=== PATIENT | male | born 1950 | race Caucasian/White ===

== ENCOUNTER 2016-08-20 12:15 | Day surgery (SDC) | payer OTHER ==
[2016-08-18 11:34] LABS: ASPARTATE AMINO TRANSFERASE 20 U/L (15-37); BLOOD UREA NITROGEN 21 mg/dL (7-18)
[~2016-08-20] VITALS: Ht 177.8 cm; Wt 88.0 kg
[~2016-08-20 12:15] MED LIST: ASPI-496 PO; ATOR40TA PO; LOSA25TA5 PO; MULT-412 PO; OMEP20TA62 PO
[2016-08-20 12:43] VITALS: BP 134/82
[2016-08-20] MEDS ORDERED: LACTATED RINGERS 1,000 ML IV SCH (12:49)
[2016-08-20] MEDS ORDERED: OMEGA PO (12:50)
[2016-08-20] MEDS ORDERED: INDOCYANINE GREEN 25 MG VIAL ONE (13:04)
[2016-08-20] MEDS ORDERED: EPINEPHRINE SYRINGE 0.1 MG/ML, 10ML ONE (13:04)
[2016-08-20] MEDS ORDERED: MIDAZOLAM 1 MG/ML, 2ML ONE (13:25)
[2016-08-20] MEDS ORDERED: PROPOFOL 10 MG/ML, 50ML ONE (13:28)
[2016-08-20] MEDS ORDERED: ONDANSETRON 2MG/ML, 2ML ONE (13:28)
[2016-08-20] MEDS ORDERED: DEXAMETHASONE 4 MG/ML, 1ML ONE (13:28)
[2016-08-20] MEDS ORDERED: KETOROLAC 30 MG/1 ML ONE (13:28)
[2016-08-20] MEDS ORDERED: ALBUTEROL SULFATE 2.5 MG/3 ML NPPB PRN (14:00)
[2016-08-20] MEDS ORDERED: PROMETHAZINE 25 MG/ML, 1ML IV PRN (14:00)
[2016-08-20] MEDS ORDERED: MEPERIDINE/PF 25MG/0.5ML IVPush PRN (14:00)
[2016-08-20] MEDS ORDERED: MIDAZOLAM 1 MG/ML, 2ML IV PRN (14:00)
[2016-08-20] MEDS ORDERED: HYDROmorphone 1 MG/ML, 1ML IV PRN (14:00)
[2016-08-20] MEDS ORDERED: hydrALAzine 20 MG/ML, 1ML IV PRN (14:00)
[2016-08-20] MEDS ORDERED: OXYcodone 5 MG/5 ML ORAL.SOL UDC PO PRN (14:00)
[2016-08-20] MEDS ORDERED: ACETAMINOPHEN 325 MG TABLET PO PRN (14:00)
[2016-08-20] MEDS ORDERED: FENTANYL PF 100 MCG/2ML IV PRN (14:00)
[2016-08-20] MEDS ORDERED: LABETALOL 5MG/ML, 20ML IV PRN (14:00)
[2016-08-20] MEDS ORDERED: METOPROLOL 1 MG/ML, 5ML IV PRN (14:00)
[2016-08-20] MEDS ORDERED: ONDANSETRON 2MG/ML, 2ML IVPush PRN (14:00)
[2016-08-20] MEDS ORDERED: EPHEDRINE 50 MG/ML, 1ML IVPush PRN (14:00)
== END 2016-08-20 15:45 | disposition home or self-care (01) ==
LOC: OUT 12:15
PROVIDERS: ATTEND Internal Medicine Gastroenterology
DX: D13.0 Benign neoplasm of esophagus (principal); K44.9 Diaphragmatic hernia without obstruction or gangrene; I10 Essential (primary) hypertension; K21.9 Gastro-esophageal reflux disease without esophagitis; E78.5 Hyperlipidemia, unspecified; Z87.891 Personal history of nicotine dependence; Z72.89 Other problems related to lifestyle; Z90.49 Acquired absence of other specified parts of digestive tract
CPT/HCPCS: 36415; 43237; 43254; 80053; 88305; 93005; A4648; J1100; J1885; J2250; J2405; J2704; J7120